=== PATIENT | male | born 1975 | race Caucasian/White ===

== ENCOUNTER 2018-08-16 00:37 | Emergency (ER) | payer SELFPAY ==
--- NOTE | 2018-08-16 01:01 | EDM.PDOCBH ---
ED HPI GENERAL MEDICAL PROBLEM - General Chief Complaint: Drug or Alcohol Abuse Stated Complaint: MED CLEARENCE Time Seen by Provider: 08/16/18 00:43 Source of Information: Reports: Patient, Police History Limitations: Reports: Intoxication - History of Present Illness INITIAL COMMENTS - FREE TEXT/NARRATIVE: The patient was brought in by [id number] for public intoxication. The patient does admit to drinking "lots" of alcohol tonight. He was trying to get on the bus to go to [facility]. The business solutions director did not think it was safe. He was able to walk in to the ER and he is answering all of my questions. He is cooperative. He says he has no medical problems. He does smoke. He denies using any illegal drugs. Onset: Gradual Duration: Hour(s): Severity: Moderate Improves with: Reports: None Worsens with: Reports: None Associated Symptoms: Reports: No Other Symptoms - Related Data Allergies Allergy/AdvReac Type Severity Reaction Status Date / Time No Known Allergies Allergy Verified 08/16/18 00:47 Home Meds: Home Meds . [No Known Home Meds] 08/16/18 [History] ED ROS GENERAL - Review of Systems Review Of Systems: See Below Constitutional: Reports: No Symptoms HEENT: Reports: No Symptoms Respiratory: Reports: No Symptoms Cardiovascular: Reports: No Symptoms Endocrine: Reports: No Symptoms GI/Abdominal: Reports: No Symptoms : Reports: No Symptoms Musculoskeletal: Reports: No Symptoms ED EXAM, BEHAVIORAL HEALTH - Physical Exam Exam: See Below Exam Limited By: Intoxication General Appearance: Other (Drowsy but he will follow commands and answer questions) Ears: Normal External Exam Nose: Normal Inspection Head: Atraumatic, Normocephalic Neck: Normal Inspection Respiratory/Chest: No Respiratory Distress, Lungs Clear, Normal Breath Sounds Cardiovascular: Regular Rate, Rhythm, No Edema, No Murmur GI/Abdominal: Soft, Non-Tender, No Organomegaly, No Mass Extremities: Normal Inspection Neurological: No Motor/Sensory Deficits, Other (slurred speech) COURSE, BEHAVIORAL HEALTH COMP - Course Vital Signs: Last Vital Signs Temp 98.0 F 08/16/18 00:44 Pulse 85 08/16/18 00:44 Resp 20 08/16/18 00:44 BP 133/86 08/16/18 00:44 Pulse Ox 97 08/16/18 00:44 Orders, Labs, Meds: Laboratory Tests 08/16/18 Range/Units 01:10 Ethyl Alcohol 0.42 (0.00) gm% Re-Assessment/Re-Exam: I will get a blood alcohol and we will watch him tonight. He is not under arrest at this time. His blood alcohol is 0.42. We will let him sleep this morning and discharge him in the morning. He is up and would like to go. I will discharge him. Departure - Departure Time of Disposition: 06:05 Disposition: Home, Self-Care 01 Condition: Good Clinical Impression: Alcohol abuse Alcohol intoxication Qualifiers: Complication of substance-induced condition: uncomplicated Qualified Code(s): F10.920 - Alcohol use, unspecified with intoxication, uncomplicated - Discharge Information *PRESCRIPTION DRUG MONITORING PROGRAM REVIEWED*: No *COPY OF PRESCRIPTION DRUG MONITORING REPORT IN PATIENT PRIYA: No Referrals: PCP,Not In Area [Primary Care Provider] - Additional Instructions: Go get some rest. Try not to drink. Please return if you are worse.
== END 2018-08-16 06:19 | disposition home or self-care (01) ==
LOC: JD.ED 00:37
DX: F10.120 Alcohol abuse with intoxication, uncomplicated (principal); Y90.8 Blood alcohol level of 240 mg/100 ml or more
CPT/HCPCS: 36415; 99282; G0480; 99283

== ENCOUNTER 2018-08-17 10:39 | Emergency (ER) | payer OTHER ==
--- NOTE | 2018-08-17 11:47 | EDM.PDOCBH ---
<Anne Diallo - Last Filed: 08/17/18 14:51> ED HPI GENERAL MEDICAL PROBLEM - General Chief Complaint: Drug or Alcohol Abuse Stated Complaint: DETOX Time Seen by Provider: 08/17/18 11:05 Source of Information: Reports: Patient, EMS Notes Reviewed History Limitations: Reports: Intoxication - History of Present Illness INITIAL COMMENTS - FREE TEXT/NARRATIVE: 42-year-old male presents to emergency room with chief complaints that he " would like to get assistance with detox for his drinking." Patient states that "he drinks a lot every day and has been bad shape." Patient reports he likes to drink anything. He denies any drug use. States that he has been otherwise healthy. He has not been around any contacts. He does not have a PCP. Patient is intoxicated during examination. Further evaluation reveals patient is from [facility]. He was seen in the emergency room last evening but did not stay. It is uncertain where the patient lives at this time. Onset: Today Onset Date: 08/17/18 Onset Time: 09:00 Improves with: Reports: None Worsens with: Reports: None Associated Symptoms: Reports: Other (intoxication). Denies: Fever/Chills, Headaches, Nausea/Vomiting, Seizure, Shortness of Breath, Syncope, Weakness - Related Data Allergies Allergy/AdvReac Type Severity Reaction Status Date / Time No Known Allergies Allergy Verified 08/17/18 10:49 Home Meds: Home Meds . [No Known Home Meds] 08/16/18 [History] Past Medical History - Past Health History Medical/Surgical History: Denies Medical/Surgical History Social & Family History - Family History Family Medical History: Noncontributory - Tobacco Use Smoking Status *Q: Unknown Ever Smoked Second Hand Smoke Exposure: No - Caffeine Use Caffeine Use: Reports: None - Recreational Drug Use Recreational Drug Use: No ED ROS GENERAL - Review of Systems Review Of Systems: ROS reveals no pertinent complaints other than HPI. Constitutional: Denies: Fever, Chills, Malaise, Fatigue, Decreased Appetite Respiratory: Denies: Shortness of Breath Cardiovascular: Denies: Chest Pain, Syncope Endocrine: Denies: Fatigue GI/Abdominal: Denies: Abdominal Pain, Nausea, Vomiting Musculoskeletal: Reports: No Symptoms Skin: Reports: No Symptoms Neurological: Reports: Other (intoxication) Psychiatric: Reports: No Symptoms ED EXAM, BEHAVIORAL HEALTH - Physical Exam Exam: See Below Exam Limited By: No Limitations General Appearance: Alert, WD/WN, No Apparent Distress, Other (intoxication) Ears: Normal External Exam, Normal Canal, Hearing Grossly Normal, Normal TMs Nose: Normal Inspection, Normal Mucosa, No Blood Throat/Mouth: Normal Inspection, Normal Lips, Normal Teeth, Normal Gums, Normal Oropharynx, Normal Voice, No Airway Compromise, Other (missing front upper teeth ) Head: Atraumatic, Normocephalic Neck: Normal Inspection, Supple, Non-Tender, Full Range of Motion Respiratory/Chest: No Respiratory Distress, Lungs Clear, Normal Breath Sounds, No Accessory Muscle Use, Chest Non-Tender Cardiovascular: Normal Peripheral Pulses, Regular Rate, Rhythm, No Edema, No Gallop, No JVD, No Murmur, No Rub GI/Abdominal: Normal Bowel Sounds, Soft, Non-Tender, No Organomegaly, No Distention Neurological: Normal Mood/Affect, Oriented x 3, Other (intoxication) Psychiatric: Alert, Normal Affect, Normal Cognition, Normal Mood, Oriented Skin Exam: Warm, Dry, Intact, Normal color, No rash EKG INTERPRETATION EKG Date: 08/17/18 Time: 11:26 Rhythm: NSR Page: Normal P-Wave: Present QRS: Normal ST-T: Other (ST elev, probable normal early repol pattern) QT: Normal Comparison: NA - No Prior EKG COURSE, BEHAVIORAL HEALTH COMP - Course Vital Signs: Last Vital Signs Temp 36.5 C 08/17/18 10:46 Pulse 91 08/17/18 10:46 Resp 16 08/17/18 10:46 BP 133/98 H 08/17/18 10:46 Pulse Ox 96 08/17/18 10:46 Orders, Labs, Meds: Active Orders 24 hr Category Date Time Status EKG Documentation Completion [RC] ASDIRECTED Care 08/17/18 11:09 Active Regular Diet [DIET] Diet 08/17/18 Dinner Active CXR [Chest 1V Frontal] [CR] Stat Exams 08/17/18 11:51 Taken Sodium Chloride 0.9% [Normal Saline] 1,000 ml Med 08/17/18 13:30 Active IV ASDIRECTED EKG 12 Lead [EK] Stat Ther 08/17/18 11:07 Ordered Medication Orders Sodium Chloride (Normal Saline) 1,000 mls @ 125 mls/hr IV ASDIRECTED JANA Laboratory Tests 08/17/18 08/17/18 08/17/18 Range/Units 11:25 11:25 11:25 WBC 7.47 (4.23-9.07) K/mm3 RBC 5.33 (4.63-6.08) M/mm3 Hgb 14.8 (13.7-17.5) gm/L Hct 43.6 (40.1-51.0) % MCV 81.8 (79.0-92.2) fl MCH 27.8 (25.7-32.2) pg MCHC 33.9 (32.2-35.5) g/dl RDW Std Deviation 46.3 H (35.1-43.9) fL Plt Count 229 (163-337) K/mm3 MPV 9.9 (9.4-12.3) fl Neut % (Auto) 66.1 (34.0-67.9) % Lymph % (Auto) 25.6 (21.8-53.1) % [place] % (Auto) 6.8 (5.3-12.2) % Eos % (Auto) 0.7 L (0.8-7.0) Baso % (Auto) 0.7 (0.1-1.2) % Neut # (Auto) 4.94 (1.78-5.38) K/mm3 Lymph # (Auto) 1.91 (1.32-3.57) K/mm3 [place] # (Auto) 0.51 (0.30-0.82) K/mm3 Eos # (Auto) 0.05 (0.04-0.54) K/mm3 Baso # (Auto) 0.05 (0.01-0.08) K/mm3 Sodium 145 (136-145) mEq/L Potassium 4.1 (3.5-5.1) mEq/L Chloride 108 H (98-107) mEq/L Carbon Dioxide 25 (21-32) mEq/L Anion Gap 16.1 H (5-15) BUN 25 H (7-18) mg/dL Creatinine 1.0 (0.7-1.3) mg/dL Est Cr Clr Drug Dosing 101.45 mL/min Estimated GFR (MDRD) > 60 (>60) mL/min BUN/Creatinine Ratio 25.0 H (14-18) Glucose 111 H (74-106) mg/dL Calcium 9.3 (8.5-10.1) mg/dL Magnesium 2.0 (1.8-2.4) mg/dl Total Bilirubin 0.5 (0.2-1.0) mg/dL AST 31 (15-37) U/L ALT 34 (16-63) U/L Alkaline Phosphatase 86 (46-116) U/L Total Protein 7.1 (6.4-8.2) g/dl Albumin 3.7 (3.4-5.0) g/dl Globulin 3.4 gm/dL Albumin/Globulin Ratio 1.1 (1-2) Folate 8.7 (8.6-58.9) ng/mL Urine Color (Yellow) Urine Appearance (Clear) Urine pH (5.0-8.0) Ur Specific [place] (1.005-1.030) Urine Protein (Negative) Urine Glucose (UA) (Negative) Urine Ketones (Negative) Urine Occult Blood (Negative) Urine Nitrite (Negative) Urine Bilirubin (Negative) Urine Urobilinogen (0.2-1.0) Ur Leukocyte Esterase (Negative) Urine Opiates Screen (OMCKMB=096) Ur Buprenorphine Scrn (CUTOFF=10) Ur Oxycodone Screen (IEP3RI=403) Urine Methadone Screen (LSV5CL=736) Ur Propoxyphene Screen (LNEXSL=661) Ur Barbiturates Screen (NXGTYG=739) Ur Tricyclics Screen (QHCRJO=302) Ur Phencyclidine Scrn (CUTOFF=25) Ur Amphetamine Screen (PAXVUI=886) U Methamphetamines Scrn (NPIZPA=964) U Benzodiazepines Scrn (ENXFOP=983) U Cocaine Metab Screen (NZFCBM=330) U Marijuana (THC) Screen (CUTOFF=50) Ethyl Alcohol (0.00) gm% 08/17/18 08/17/18 08/17/18 Range/Units 11:25 14:23 14:23 WBC (4.23-9.07) K/mm3 RBC (4.63-6.08) M/mm3 Hgb (13.7-17.5) gm/L Hct (40.1-51.0) % MCV (79.0-92.2) fl MCH (25.7-32.2) pg MCHC (32.2-35.5) g/dl RDW Std Deviation (35.1-43.9) fL Plt Count (163-337) K/mm3 MPV (9.4-12.3) fl Neut % (Auto) (34.0-67.9) % Lymph % (Auto) (21.8-53.1) % [place] % (Auto) (5.3-12.2) % Eos % (Auto) (0.8-7.0) Baso % (Auto) (0.1-1.2) % Neut # (Auto) (1.78-5.38) K/mm3 Lymph # (Auto) (1.32-3.57) K/mm3 [place] # (Auto) (0.30-0.82) K/mm3 Eos # (Auto) (0.04-0.54) K/mm3 Baso # (Auto) (0.01-0.08) K/mm3 Sodium (136-145) mEq/L Potassium (3.5-5.1) mEq/L Chloride (98-107) mEq/L Carbon Dioxide (21-32) mEq/L Anion Gap (5-15) BUN (7-18) mg/dL Creatinine (0.7-1.3) mg/dL Est Cr Clr Drug Dosing mL/min Estimated GFR (MDRD) (>60) mL/min BUN/Creatinine Ratio (14-18) Glucose (74-106) mg/dL Calcium (8.5-10.1) mg/dL Magnesium (1.8-2.4) mg/dl Total Bilirubin (0.2-1.0) mg/dL AST (15-37) U/L ALT (16-63) U/L Alkaline Phosphatase (46-116) U/L Total Protein (6.4-8.2) g/dl Albumin (3.4-5.0) g/dl Globulin gm/dL Albumin/Globulin Ratio (1-2) Folate (8.6-58.9) ng/mL Urine Color Yellow (Yellow) Urine Appearance Clear (Clear) Urine pH 6.0 (5.0-8.0) Ur Specific [place] > or = 1.030 (1.005-1.030) Urine Protein 1+ H (Negative) Urine Glucose (UA) Negative (Negative) Urine Ketones Trace H (Negative) Urine Occult Blood Negative (Negative) Urine Nitrite Negative (Negative) Urine Bilirubin Negative (Negative) Urine Urobilinogen 0.2 (0.2-1.0) Ur Leukocyte Esterase Negative (Negative) Urine Opiates Screen Negative (ZSYSGB=556) Ur Buprenorphine Scrn Negative (CUTOFF=10) Ur Oxycodone Screen Negative (GHO5IM=640) Urine Methadone Screen Negative (WFP5AA=271) Ur Propoxyphene Screen Negative (NRRZXB=915) Ur Barbiturates Screen Negative (WRKIOO=964) Ur Tricyclics Screen Negative (UFWVPR=217) Ur Phencyclidine Scrn Negative (CUTOFF=25) Ur Amphetamine Screen Negative (MVKVEP=108) U Methamphetamines Scrn Negative (ARAIGO=885) U Benzodiazepines Scrn Negative (RUFPSE=266) U Cocaine Metab Screen Negative (UKMKSP=390) U Marijuana (THC) Screen Negative (CUTOFF=50) Ethyl Alcohol 0.39 (0.00) gm% Medications Generic Name Dose Route Start Last Admin Trade Name Freq PRN Reason Stop Dose Admin Sodium Chloride 1,000 mls @ 125 mls/hr 08/17/18 13:30 Normal Saline IV ASDIRECTED JANA Discontinued Medications Generic Name Dose Route Start Last Admin Trade Name Freq PRN Reason Stop Dose Admin Sodium Chloride 1,000 mls @ 999 mls/hr 08/17/18 13:22 08/17/18 13:36 Normal Saline IV 08/17/18 14:22 999 mls/hr ONETIME ONE Administration Re-Assessment/Re-Exam: 08/27/18 1150 discussed plan of care with patient. He is cooperative and is in agreement with admission for detox. 08/27/18 1310 I reviewed his labs, WBC normal at 7.47 H&H is 14.8 and 43.6. His bun was 25 creatinine 10. I did start patient on banana bag for his dehydration. Ethyl alcohol is 0.39 is preliminary x-ray reveals no acute findings. His EKG was normal sinus rhythm with no ectopy. Patient is tolerating by mouth challenge. I will discuss case with hospitalist for further evaluation and admission for detox. 08/17/[address] Weems evaluated patient he reports he "just wants a place to stay." He states he is wanting to go but doesn't have housing at this time. Apparently he had a ticket to go back to [place] but was not able to use it because of his intoxication. his alcohol level is 0.39. I will rehydrate the patient with normal saline evaluate and arrange for patient to be discharged after obtaining housing and have further evaluation on outpatient basis. 1400 patient is ambulatory gait is steady patient is alert and oriented 3 and is appropriate. He tolerated PO challenge. 1430 I spoke with Faiza at [facility]. She states she would not be able to place patient at this time due to alcohol level. 1445 Patient is anxious and wants to leave. He is not willing to stay while I continue to find placement for him. I did discuss my concern regarding leaving AMA including worsening condition, concerns regarding exposure to the cold weather which could result in life-threatening conditions including . Patient states that he is aware of this but does not want to stay and does not want to go to senior care for detox. Departure - Departure Time of Disposition: 14:46 Disposition: Against Medical Advice 07 Condition: Fair Clinical Impression: Alcohol abuse Alcohol intoxication Qualifiers: Complication of substance-induced condition: uncomplicated Qualified Code(s): F10.920 - Alcohol use, unspecified with intoxication, uncomplicated - Discharge Information *PRESCRIPTION DRUG MONITORING PROGRAM REVIEWED*: Not Applicable *COPY OF PRESCRIPTION DRUG MONITORING REPORT IN PATIENT PRIYA: Not Applicable Referrals: PCP,None [Primary Care Provider] - Forms: Refusal of Care AMA Additional Instructions: Diagnosed with alcohol intoxication. Your request to stay in hospital and receive IV fluid and assistance with housing arrangements. Although these were offered you did refuse and wished to leave AMA. <Micky Petit - Last Filed: 08/17/18 15:07> COURSE, BEHAVIORAL HEALTH COMP - Course Discharge vs Psych Eval/Treatment:: 08/17/18 15:06 I personally evaluated the patient reviewed the history and physical and documentation and was involved with medical decision making.
[2018-08-17] MEDS ORDERED: Sodium Chloride 0.9% 1,000 ML IV ONE (13:22)
[2018-08-17] MEDS ORDERED: Sodium Chloride 0.9% 1,000 ML IV SCH (13:30)
--- NOTE | 2018-08-19 08:14 | CR ---
Chest: Portable view of the chest was obtained. Comparison: No prior chest x-ray. Heart size and mediastinum are normal. Lungs are clear. Bony structures are grossly intact. Impression: 1. Nothing acute is seen on portable chest x-ray. Diagnostic code #1
== END 2018-08-17 14:45 | disposition left against medical advice (07) ==
LOC: JD.ED 10:39
DX: F10.129 Alcohol abuse with intoxication, unspecified (principal); Y90.8 Blood alcohol level of 240 mg/100 ml or more
CPT/HCPCS: 36415; 71045; 80053; 80306; 81003; 82746; 83735; 85025; 93005; 99284; G0480; J7040; 93010; 99283